=== PATIENT | male | born 1970 | race African-American/Black ===

== ENCOUNTER 2021-03-06 22:33 | Emergency (ER) | payer SELFPAY ==
[2021-03-06 22:44] VITALS: BP 104/87; PULSE 98; RESP 18; TEMP 98.7
--- NOTE | 2021-03-06 23:10 | ED ---
Recheck HPI - General Chief Complaint: Recheck/Abnormal Lab/Rx Stated Complaint: Covid test Time Seen by Provider: 03/06/21 22:51 Source: patient Mode of arrival: ambulatory Limitations: no limitations - History of Present Illness Initial Comments: Patient presents to the emergency department today for COVID-19 testing in order to cross border into [place]. Denies any current symptoms or recent exposures. Patient denies need for further medical screening or examination. - Related Data Allergies Allergy/AdvReac Type Severity Reaction Status Date / Time No Known Allergies Allergy Verified 03/06/21 22:42 Review of Systems ROS Statement: Those systems with pertinent positive or pertinent negative responses have been documented in the HPI. ROS Other: All systems not noted in ROS Statement are negative. Past Medical History Past Medical History: No Reported History History of Any Multi-Drug Resistant Organisms: None Reported Past Surgical History: No Surgical Hx Reported Past Psychological History: No Psychological Hx Reported Smoking Status: Never smoker Past Alcohol Use History: None Reported Past Drug Use History: None Reported General Exam Limitations: no limitations General appearance: alert, in no apparent distress Neurological exam: Present: alert, oriented X3 Psychiatric exam: Present: normal affect, normal mood Skin exam: Present: warm, dry, normal color. Absent: rash Course Vital Signs 03/06/21 22:42 Temperature 98.7 F Pulse Rate 98 Respiratory 18 Rate Blood Pressure 104/87 O2 Sat by Pulse 96 Oximetry Medical Decision Making - Medical Decision Making Patient presented for COVID-19 testing in order to cross border into [place]. Did not have any symptoms. Declined any need for further exam or screening. Test results were negative. Patient was given copy of result and discharged. My attending is Dr. Vera. - Lab Data Lab Results 03/06/21 Range/Units 22:44 Coronavirus (PCR) Not Detected (Not Detectd) Disposition Clinical Impression: Encounter for laboratory testing for COVID-19 virus Disposition: HOME SELF-CARE Condition: Good Instructions (If sedation given, give patient instructions): Coronavirus Disease 2019 (COVID-19) Is patient prescribed a controlled substance at d/c from ED?: No Referrals: None,Stated [Primary Care Provider] - 1-2 days Time of Disposition: 23:10
== END 2021-03-06 23:29 | disposition home or self-care (01) ==
LOC: EC 22:33
DX: Z11.52 Encounter for screening for COVID-19 (principal); Z20.822 Contact with and (suspected) exposure to COVID-19
CPT/HCPCS: 87635; 99282